=== PATIENT | female | born 1960 | race Caucasian/White ===

== ENCOUNTER 2023-06-20 06:10 | Day surgery (SDC) | payer OTHER, SELFPAY ==
[2023-06-20] VITALS (11 sets, daily range): BP systolic 107–132; BP diastolic 60–92; BMI 44.4
[2023-06-20] MEDS: NSS 330 ML IV (06:58)
[2023-06-20] MEDS: LOW STRENGTH ASPIRIN 324 MG PO (07:09)
[2023-06-20 08:20] LABS: Hematocrit 33.1 % (37.0-47.0); Mean Corp Hgb Conc. 33.2 g/dL (33.0-37.0); Mean Corpuscular Hgb 28.8 pg (27.0-31.0); Mean Corpuscular Volume 86.6 fL (81.0-99.0); Mean Platelet Volume 9.3 fL (7.4-10.4); Platelet Count 337 10^3/uL (130-400); Red Blood Cell Count 3.82 10^6/uL (4.20-5.40); Red Cell Dist. Width 13.2 % (11.5-14.5); White Blood Cell Count 9.9 10^3/uL (4.8-10.8)
[2023-06-20 08:42] LABS: NT-proBNP 263 pg/ml
--- NOTE | 2023-06-20 10:42 | ITS.CL.CATH ---
[facility] - Catheterization
Cardiac Catheterization
Procedure Report:
LEFT HEART CATHETERIZATION
Date of Procedure: June 20, 2023
Procedures performed:
1: Coronary angiography
2: Left ventricular hemodynamic assessment
Primary Care Physician: Dr. Modesta Coronado
Primary Full Stack Python Developer: Dr. Frederick Mckee
INDICATION: The patient is a 63-year-old woman with morbid obesity and severe aortic stenosis referred for coronary angiography in preparation for aortic valve intervention. Echo showed preserved EF with very high gradients. She recently developed
a URI and was started on Zithromax after visiting an urgent care center on Sunday. She has been afebrile.
ACCESS: The patient was prepped and draped in usual sterile fashion. A 6 [place] sheath was placed in the right radial artery using the Seldinger over the wire technique.
HEMODYNAMIC FINDINGS (mmHg):
LV(s/d,EDP): 199/19, 32
Ao(s/d,m): 135/83, 106
Mean aortic valve gradient on pullback: 48 mmHg
ANGIOGRAPHIC FINDINGS:
Single-plane Left Ventriculography in JJ Projection: Not done. Normal LV systolic function by recent echo.
Coronary Angiography:
Dominance: Right
Left Main: Normal
Left Anterior Descending: The left anterior descending artery is a large-caliber vessel that gives rise to several small caliber diagonal branches. These vessels are widely patent and appear angiographically normal with normal flow.
Left Circumflex: The circumflex artery is a medium caliber nondominant system that gives rise to 1 small first obtuse marginal branch and a very large second obtuse marginal branch that bifurcates into 3 major vessels. These vessels are normal with
normal flow.
Right Coronary: The right coronary artery is a medium to large caliber dominant vessel that is angiographically normal.
Fluoroscopy Time (min): 2.9
Radiation Dose (mGy): 284
DAP (Gy.cm2): 17
Closure device: None. A TR band was applied for hemostasis at the right wrist.
Complications: None.
ASSESSMENT:
1: Normal coronary arteries.
2: Severe aortic stenosis with elevated left ventricular filling pressures
CONCLUSIONS and RECOMMENDATIONS:
1: Proceed with CT surgical evaluation for SAVR versus TAVR. Given her relatively young age, despite her obesity, I think she is best served with a surgical aortic valve. Arrangements for formal CT surgical evaluation with Dr. Silva scheduled for
tomorrow.
2: Lasix 20 mg IV given at the end of the procedure given her elevated left ventricular filling pressures.
3: Close clinical follow-up.
Sylvester Angeles M.D.
Copy to: Dr. Modesta Coronado
--- NOTE | 2023-06-22 07:00 | W.PN.UPDATE ---
Update Note
Progress Note Update
Reviewed patient with the heart team in the SDM meeting. Patient saw Dr. Silva 06/20 in consult. A TAVR CT scan was ordered for a comprehensive evaluation of vessel size and heart anatomy for lifelong management planning. Dr. Silva will call patient to
discuss once CT scan has been completed. Patient is considering SAVR.
== END 2023-06-20 12:00 | disposition home or self-care (01) ==
LOC: CATH 06:10
PROVIDERS: Nurse Practitioner; ATTENDING PHYSICIAN Internal Medicine Interventional Cardiology; FAMILY PHYSICIAN Family Medicine; OTHER PHYSICIAN Internal Medicine Cardiovascular Disease
DX: I35.0 Nonrheumatic aortic (valve) stenosis (principal); E66.01 Morbid (severe) obesity due to excess calories
CPT/HCPCS: 83880; 85027; 93458; C1894; Q9967

== ENCOUNTER → 2023-06-28 09:32 | Outpatient (REF) | payer OTHER, SELFPAY | LOC: RAD 09:32 | PROVIDERS: ATTENDING PHYSICIAN Thoracic Surgery (Cardiothoracic Vascular Surgery) | DX: I35.0 Nonrheumatic aortic (valve) stenosis (principal) | CPT/HCPCS: 74174; 75572; Q9967 ==

== ENCOUNTER 2023-07-13 04:45 | Inpatient (IN) | payer OTHER, SELFPAY ==
[2023-07-02 09:01] VITALS: BMI 43.1
[2023-07-02 09:37] LABS: % Basophils 0.6 % (0-2); % Eosinophils 0.9 % (0-6); % Immature Granulocytes 0.3 % (0-0.5); % Lymphocytes 37.3 % (20.5-51.1); % Monocytes 8.4 % (1.7-9.3); % Neutrophils 52.5 % (42.2-75.2); Absolute Basophils 0.1 10^3/uL (0-0.2); Absolute Eosinophils 0.1 10^3/uL (0-0.7); Absolute Lymphocytes 3.4 10^3/uL (1.2-3.4); Absolute Monocytes 0.8 10^3/uL (0.1-0.6); Absolute Neutrophils 4.7 10^3/uL (1.4-6.5); Hematocrit 37.4 % (37.0-47.0); Hemoglobin 12.6 g/dL (12.0-16.0); Mean Corp Hgb Conc. 33.7 g/dL (33.0-37.0); Mean Corpuscular Hgb 29.1 pg (27.0-31.0); Mean Corpuscular Volume 86.4 fL (81.0-99.0); Mean Platelet Volume 8.7 fL (7.4-10.4); Nucleated Red Blood Cells % 0 %; Platelet Count 426 10^3/uL (130-400); Red Blood Cell Count 4.33 10^6/uL (4.20-5.40); Red Cell Dist. Width 13.3 % (11.5-14.5)
[2023-07-02 09:39] LABS: Urine Albumin Negative (Neg - Trace); Urine Bilirubin Negative (Negative); Urine Character Clear (Clear); Urine Color Yellow; Urine Glucose Negative (Negative); Urine Ketone Negative (Negative); Urine Leukocyte Negative (Negative); Urine Nitrite Negative (Negative); Urine Occult Blood Trace (Negative); Urine Specific Gravity 1.015 (<1.030); Urine Urobilinogen Negative (Neg - 1+)
[2023-07-02 09:43] LABS: INR 1.03; PT 13.3 Sec (11.4-14.6)
[2023-07-02 09:44] LABS: APTT 30.6 Sec (23.4-35.0)
[2023-07-02 10:04] LABS: ALT (SGPT) 16 U/L (0-35); AST (SGOT) 20 U/L (14-36); Albumin 4.2 g/dl (3.5-5.0); Alkaline Phosphatase 92 U/L (38-126); Blood Urea Nitrogen 19 mg/dl (7-17); Calcium 9.6 mg/dl (8.4-10.2); Carbon Dioxide 30 mmol/L (22-30); Chloride 96 mmol/L (98-107); Direct Bilirubin 0.3 mg/dl (0.0-0.4); Estimated Creatinine Clearance 86 ml/min; Glucose 93 mg/dl (70-99); Sodium 136 mmol/L (135-145); Total Bilirubin 0.6 mg/dl (0.2-1.3); Total Protein 7.3 g/dl (6.3-8.2); eGFR > 60.00
[2023-07-02 10:23] LABS: Urine Bacteria Few (Negative)
--- NOTE | 2023-07-02 10:48 | CM ---
Chart reviewed. Patient is independent of ADLS, lives with her and son in a 2 [address], 3 [place]UR[place], 0 DME. Reviewed preoperative and postoperative instructions and restrictions, along with showering guidelines. Gave patient 2 soaps along Cardiac
Surgery Book. Patient is agreeable to a home visit with the CT Transitional Care RN. Plan is for the patient to return home with CT Transitional RN. CM to follow
[2023-07-02 12:16] LABS: Glycohemoglobin (HgbA1c) 5.8 % (4.0-5.6)
[2023-07-13] VITALS (11 sets, daily range): BP systolic 83–122; BP diastolic 50–71; BMI 42.8
[2023-07-13] MEDS: LOPRESSOR 25 MG PO (06:03)
[2023-07-13] MEDS: BACTROBAN 2% OINTMENT 1 APPLIC NASAL ×2 (06:03→20:25)
[2023-07-13] MEDS: PROTONIX 40 MG PO (06:03)
[2023-07-13] MEDS: MAGNESIUM OXIDE 500 MG PO (06:04)
--- NOTE | 2023-07-13 06:13 | W.CVOR.SURPR ---
[facility] Surgeon Immed Pre Op
-
I have examined this patient prior to performance of the scheduled procedure.
The patient's condition is unchanged from the time of the dictated/written History and
Physical and the patient is able to undergo the scheduled procedure.
Sternotomy AVR with aortic root enlargement +/- SLICK Clip
CHADsVASC 2
[2023-07-13 08:33] LABS: ACT+ - POC 90 Seconds (82-134)
[2023-07-13 08:36] LABS: B.E. - POC -3.2 mmol/L; Glucose - POC 88 mg/dl (65-99); HCO3 - POC 22 mmol/L (21-29); Hematocrit - POC 34 % PCV (37-47); Hemodilution- POC Yes; Hemoglobin Calculated - POC 11.7; Ionized Calcium - POC 1.16 mmol/L (1.12-1.27); O2 Saturation %Calculated-POC 99.8 5 (92-96); PCO2 - POC 41 mmHg (35-45); PO2 - POC 242 mmHg (80-100); Sodium - POC 143 mmol/L (135-145); pH - POC 7.35 (7.35-7.45)
[2023-07-13 08:45] LABS: Urine Albumin Negative (Neg - Trace); Urine Bilirubin Negative (Negative); Urine Character Clear (Clear); Urine Color Yellow; Urine Glucose Negative (Negative); Urine Ketone Negative (Negative); Urine Leukocyte 1+ (Negative); Urine Nitrite Negative (Negative); Urine Occult Blood 1+ (Negative); Urine Urobilinogen Negative (Neg - 1+)
[2023-07-13 09:10] LABS: Urine Hyaline Cast 0-2 /LPF (0-2); Urine Squamous Cell 16-20 /LPF (Few)
[2023-07-13 09:11] LABS: Urine Bacteria Moderate (Negative); Urine Red Blood Cell 0-2 /HPF (0-2); Urine White Cell 30-40 /HPF (0-5)
[2023-07-13 09:37] LABS: ACT+ - POC 659 Seconds (82-134)
[2023-07-13 09:58] LABS: B.E. - POC 2.7 mmol/L; Glucose - POC 102 mg/dl (65-99); HCO3 - POC 26 mmol/L (21-29); Hematocrit - POC 26 % PCV (37-47); Hemodilution- POC Yes; Hemoglobin Calculated - POC 8.9; PCO2 - POC 33 mmHg (35-45); PO2 - POC 366 mmHg (80-100); Potassium - POC 4.8 mmol/L (3.6-5.0); Sodium - POC 138 mmol/L (135-145)
[2023-07-13 10:00] LABS: ACT+ - POC 595 Seconds (82-134)
[2023-07-13 10:29] LABS: B.E. - POC 1.1 mmol/L; Glucose - POC 136 mg/dl (65-99); HCO3 - POC 25 mmol/L (21-29); Hematocrit - POC 28 % PCV (37-47); Hemodilution- POC Yes; Hemoglobin Calculated - POC 9.6; Ionized Calcium - POC 1.04 mmol/L (1.12-1.27); O2 Saturation %Calculated-POC 99.9 5 (92-96); PCO2 - POC 37 mmHg (35-45); PO2 - POC 285 mmHg (80-100); Potassium - POC 4.7 mmol/L (3.6-5.0); Sodium - POC 141 mmol/L (135-145); pH - POC 7.44 (7.35-7.45)
[2023-07-13 10:32] LABS: ACT+ - POC 527 Seconds (82-134)
[2023-07-13 11:23] LABS: ACT+ - POC 107 Seconds (82-134)
[2023-07-13 11:24] LABS: B.E. - POC -5.6 mmol/L; Glucose - POC 80 mg/dl (65-99); HCO3 - POC 19 mmol/L (21-29); Hematocrit - POC 25 % PCV (37-47); Hemodilution- POC Yes; Hemoglobin Calculated - POC 8.6; Ionized Calcium - POC 1.26 mmol/L (1.12-1.27); O2 Saturation %Calculated-POC 99.9 5 (92-96); PCO2 - POC 33 mmHg (35-45); PO2 - POC 334 mmHg (80-100); Potassium - POC 3.2 mmol/L (3.6-5.0); Sodium - POC 144 mmol/L (135-145); pH - POC 7.37 (7.35-7.45)
--- NOTE | 2023-07-13 11:53 | CM ---
Chart reviewed. Patient is in the OR today. Patient is independent of ADLS, lives with her in a 2 STH, 3 [place]URA, 0 DME. Plan is for the patient to return home with CT Transitional RN. CM to follow
[2023-07-13 12:44] LABS: Glucose - Point of Care 157 mg/dl (70-99)
[2023-07-13 12:49] LABS: Hematocrit 27.1 % (37.0-47.0); Hemoglobin 9.3 g/dL (12.0-16.0); Platelet Count 218 10^3/uL (130-400)
[2023-07-13 12:50] LABS: B.E. -1.6 mmol/L; HCO3 22.9 mmol/L (21-28); Ionized Calcium 1.19 mMOL/L (1.15-1.33); PCO2 37 mmHg (32-35); PO2 197 mmHg (83-108); Potassium 4.4 mMOL/L (3.5-5.1); Sodium 140 mMOL/L (136-145)
[2023-07-13 12:54] LABS: Mixed Venous O2 Saturation 75.5 %
[2023-07-13 13:00] LABS: INR 1.36; PT 16.6 Sec (11.4-14.6)
--- NOTE | 2023-07-13 13:02 | W.PN.CT.SURG ---
CT Surgery Operative Note
-
CARDIAC SURGERY OPERATIVE REPORT
Preoperative Diagnosis: Aortic valve stenosis with bicuspid morphology, symptomatic
Postoperative Diagnosis: Same
Procedure(s) Performed:
1. Standard sternotomy with aortic and right atrial cannulation
2. Aortic valve replacement with a 25 mm bioprosthesis
3. Aortic root enlargement - Nicks-Velazco Method
4. Placement temporary ventricular pacing wires
5. Transesophageal echocardiography
6. Rigid sternal fixation with 3 plates and wound VAC placement
Date of Surgery: 07/13/2023
Comorbidities:
1. Severe aortic valve stenosis secondary to type I bicuspid valve with left right fusion, symptomatic
2. Morbidly obese with BMI of 42.8
3. Hypertension
4. Hyperlipidemia
5. ANEL
6. Fibro cystic breast disorder
7. Endometriosis
8. Asthma
9. GERD
Attending Surgeon: Braulio Silva MD, MS
Assistants: Patrick Ochoa PA-C (present and necessary to commercial escrow assistant, retraction, suction, exposure, suture management, and wound closure under my direction)
Anesthesiology: Yobani Ortiz MD and Meagan Sargent CRNA
Scrub and Circulating RNs: Radha Santoyo, RN, Loni Cano RN
Manager Economic: Mario Gee CCP
Anesthesia: GETA
EBL: per perfusion records
Products: None
CPB Time: 90 minutes
Aortic Cross Clamp Time: 75 minutes
Indication(s) for Procedures: This is a 60-year-old female severely valve stenosis and was profoundly symptomatic. She also recently had a respiratory tract infection. Due to her young age, we discussed the risk and benefits of operative
intervention versus TAVR. We opted to move forward with surgical aortic valve replacement as she met stage D symptomatology and class I indication.
Aortic Valve Description: Thickened leaflets, calcified most in the body of the leaflet, left right fusion with type I morphology
Findings: Left ventricular ejection fraction was 65% with no regional wall motion abnormalities there was mild left ventricular hypertrophy consistent with aortic valve stenosis. Following surgery EF was hyperdynamic at approximately 70% with no
new regional wall motion abnormalities. RV function was normal. Her root was enlarged with a mixed Velazco technique with the patient down the left none commissure onto the aorto mitral curtain. Using a large bovine pericardial patch this was sewn
to the base of the incision and along the aortotomy. The aortic valve was replaced with a total of 19 annular sutures with 4 of them being pledgeted outside the patch these were secured in place with core knots. Following implant of the valve,
there was trivial residual aortic valve insufficiency no significant paravalvular leak and normal prosthesis function. The mean gradient across her valve while she was hyperdynamic was 11 mmHg. She did not require any inotropic support. After
short period of junctional rhythm, she regained sinus rhythm. No products were given.
Specimen(s): Aortic Valve Leaflets.
Prosthesis:
1. 25mm SHEN Inspiris Resilia AVR, SN [id number]
2. Bovine Pericardial Patch, SN [id number]
3. 3 Box plates flat, 4 x 18mm screws and 8 x 16mm screws
Description of Procedure: The patient was taken to the operating room. Their identity and procedure to be performed were verified and they were positioned supine on the operating table. Induction via general anesthesia with endotracheal intubation
was performed and central venous access and arterial monitoring were inserted. A preoperative transesophageal echocardiogram was performed to assess cardiac function and valvular function. The patient was then prepped and draped from chin to feet in
a sterile fashion. A preoperative time-out was performed with all members of the team present. A midline chest incision was performed along with median sternotomy. The innominate vein was isolated. Full heparinization was given (a total of 50,000
units). We created a pericardial well. The aortic cannulation site was chosen where it was soft, pliable, and free of calcium. Cannulation was performed with an arterial cannula in the ascending aorta and a triple-stage venous cannula through the
right atrial appendage. The arterial cannula line had an appropriate bounce and correlating pressures with test dosing. Next, a root vent/antegrade cannula was inserted into the ascending aorta. The ACT was confirmed to be over 400 and retrograde
autologous priming was performed before commencing cardiopulmonary bypass. The pulmonary artery was away from the aorta to facilitate a clamp site and aortotomy. A left ventricular vent was placed at the right superior pulmonary vein and
secured. The aortic cross-clamp was placed after decreasing the flow on the bypass and mean arterial pressure. A total of 1.2L initial dose of antegrade Del-Nido cardioplegia solution was given and planned for re-dosing every 75 minutes as
necessary. There was rapid electro-mechanical arrest of the heart at 300 cc of cardioplegia. The left ventricle was observed for distention on echocardiogram and manual palpation. Cold slush was placed into a sponge and topically on the RV while we
systemically cooled to 34 degrees centigrade.
Carbon dioxide was used to flood the field. We manually identified the location of the right coronary take off. An aortotomy was made approximately 2cm above the sinotubular junction. The location of both left and right coronary vessels were
visualized in the root.The leaflets were excised and sent for pathological assessment. The annulus was debrided of any calcium being mindful of the annulus and membranous septum. The root and left ventricular outflow tract were thoroughly irrigated
to remove any debris. I then tried to size the annulus which could not accommodate a 23 mm valve comfortably. The aortotomy incision was then extended down to sinus towards the left right commissure and onto the aorto mitral curtain. A bovine
pericardial patch was then brought to the field and fashioned accordingly into a teardrop shape. Using 4-0 Prolene this patch was sewn to the apex of the incision and run all the way up with 4-0 Prolene in a single layer. A total of 15
Non-pledgeted and 4 pledgeted (outside the patch ) 2-0 ethibond inverted annular sutures were placed [id number] circumferentially. These were brought through the sewing cuff of the prosthetic valve which as then parachuted into place. The left
and right coronary ostia were visualized and were unobstructed by the valve. A Cor-Knot device was used to secure the annular sutures. The valve was inspected and was well seated. The aortotomy was approximated with 4-0 prolene in two layers.
De-airing maneuvers were performed and temporary bipolar ventricular pacing wires were placed on the base of the right ventricle. The patient was placed in a Trendelenburg position and flows on bypass were lowered. The aortic cross clamp was removed
and flows were slowly brought back up. The aortotomy appeared hemostatic. A single repair stitch was placed towards the apex of the incision on the left side. Transesophageal echocardiography revealed no significant paravalvular leak and
appropriate prosthetic function. Once de-airing was satisfactory, the left ventricular and root vents were removed. After verifying acceptable parameters, we initiated weaning from cardiopulmonary bypass. Once we were off cardiopulmonary bypass, the
venous cannula was clamped and removed. A test dose of protamine was administered and the patient was monitored for any adverse reaction before resuming protamine. Once half of the protamine dose was delivered, pump suckers were turned off and the
systolic blood pressure was lowered for aortic decannulation. The aortic cannula was removed and pursestrings were tied down. All cannulation sites were oversewn with a 4-0 prolene. The aortotomy suture line was inspected and hemostasis was
confirmed. Mediastinal hemostasis was obtained. Two 24Fr Reynaldo drains were placed within the pericardium and a single #19 Korean Reynaldo drain to the right estelita thorax. The sternum was approximated with 4 #7 single and 3 #8 double stainless steel
wires. Three box plates were placed (one at the manubrium secured with 4 x 18mm screws, and 2 at the body of the sternum, secured with 8 x 16mm screws), Fascia was approximated with #1 vicryl suture. The subcutaneous, dermis and epidermis were
closed in layers in a running fashion. A MARTI drain was placed into the subcutaneous tissue and the skin wound was cleansed and dressed with a skin vac (VIRIDIANA).
All instrument, sponge, and needle counts were confirmed to be correct x 2 at the end of the operation. The patient was transferred to the cardiac intensive care unit in critical but stable condition.
I, Dr. Braulio Silva, was present, scrubbed for, and performed all critical elements of this procedure.
Braulio Silva MD, MS
Cardiothoracic Surgeon
[facility]
This operative dictation was created using the [employer]ad[employer] system. Please excuse any grammatical, typographical, or 'sound alike' errors
--- NOTE | 2023-07-13 13:05 | PTCARENOTE ---
Received pt from [facility] at 1230; pt intubated and sedated; NSR on monitor and VSS; Epicardial V wires connected to box and turned off; [place] floated to 40, Left A-line and PIV x 2; all lines leveled and zeroed; Levo, Insulin, and Precedex
infusing see flow sheet for details; Lungs diminished throughout; ET Tube size 8 lip @ 21; vent settings SIMV 40%/550/5/16; CT x3 to -20 wall suction no air leak and no crepitus noted; hypoactive bowel sounds; [place] catheter draining clear yellow
urine; palpable pulses throughout; no edema noted; all surgical sites C/D/I; VIRIDIANA drain intact and MARTI drain to mediastinal chest intact; see nursing documentation for further details.
CI 1.75
CO 3.66
SVR 1289
[2023-07-13 13:19] LABS: Blood Urea Nitrogen 15 mg/dl (7-17); Estimated Creatinine Clearance 114 ml/min; Glucose 145 mg/dl (70-99); Magnesium 2.5 mg/dl (1.6-2.3)
--- NOTE | 2023-07-13 13:21 | PTCARENOTE ---
CRX performed and CVNP at bedside; ET tube new placement 20 @ lip.
--- NOTE | 2023-07-13 13:22 | W.PN.UPDATE ---
Update Note
Progress Note Update
63 year old female was electively admitted for AVR/root enlargement with Dr. Silva on 07/13/23
IV fluids: 2000
U.O.:� 800
Blood:� none
Wires:�
Inotropes:� none
Pressors:� Levo @ 2
Sedatives:� Precedex @ 0.5
�
NEURO: sedated on Precedex, pupils +2mm B/L
RESP: #8OT @23cm> 550/60%/14/5. Lungs clear B/L. 2 mediastinal (10cc on arrival) and R pleural (5cc on arrival) chest tubes to -20cm suction. Sanguineous drainage
CV: RRR +S1, S2, no S3, no�rub, no murmur. Vacuum dressing to median sternotomy. RIJ w/[place] locked @ 43cm. PA 38/19; CVP 13; C.O 3.66/CI 1.75. Mediastinal MARTI intact with sanguinous drainage. Surgical binder intact over thorax
ABD: obese, round, soft, no BS
EXT: no edema, +2/4 DP pulses B/L, no femoral bruit, left brachial A-line intact
: [place] with clear yellow urine
�
A/P: POD #0 s/p Aortic valve replacement #25 mm bioprosthesis with root enlargement (Nicks-Velazco Method). Rigid sternal fixation with 3 plates and wound VAC placement
JORDAN: EF�70-75%. 80 mean gradient 11 mmHg. Trivial AI.
- wean and extubate
- will need instruction regarding antibiotic prophylaxis for dental and invasive procedures
- ASA monotherapy as anticoagulation (AC) unless other indication for ACD arises
�
# acute surgical blood loss anemia-expected
- initial Hb 9.3, will initiate ferric gluconate
- trend CBC
# anxiety/depression
-resume sertraline 50mg daily when tolerating solids
�
# Pre-diabetes (A1C 5.8)/morbid obesity (BMI 42.8)
- insulin infusion x 24h
- should follow carb controlled diet as outpatient
# Migraine cephalgia
- resume propanolol 20mg BID and sumatriptan 50mg po q2h prn when tolerating solids
�
--- NOTE | 2023-07-13 13:43 | CON.CAR ---
Addendum entered and electronically signed by Anthony Kim MD 07/13/23 14:36:
patient seen and examined
Agree with PA-C note and assessment
agree with PA-C plan
exam:
intubated and sedated
sternum cdi
sternum plated
subq drain plus mediastinal drains
PA catheter in place right ij
cor regular
lungs diminished
no ext edema
bmi noted
Primary Separations Scientist: Dr. Mckee of [facility]
Assessment:
Severe symptomatic with bicuspid morphology s/p bioprosthetic AVR, aortic root enlargement, rigid sternal fixation 07/13/23
Morbid obesity
Venous insufficiency
History of migraines
Asthma/reactive airway disease
Anemia
Endometriosis status post hysterectomy
GERD
Anxiety/depression
ECHO 06/04/2023 at [facility]: EF 55 to 60%, mild LVH, severe , trace AI
Plan:
-Status post bioprosthetic AVR with rigid sternal fixation 07/13/2023
-Patient intubated, sedated
-Not presently requiring pressor support. Cardiac index 1.75. On insulin at 3.5
-EKG sinus rhythm with NSSTS
-Noted to be wheezing on examination. Reportedly required albuterol in the OR
-Hemoglobin 9.3, follow. Platelets stable at 218
-Continue postoperative care
-Outpatient follow-up with [facility]
-Discussed with nursing
Original Note:
Consultation
Consultation Request
Date/Time Consultation Performed: 07/13/23
Requesting Provider: Dr. Silva
Performing Provider: Albina Armenta PA-C for Dr. Kim
Reason for Consultation: post AVR
Medical History
-
Chief Complaint: post AVR
History of Present Illness:
Patient is a 63 yo F with past medical history of morbid obesity, venous insufficiency, history of migraines, asthma, anemia, endometriosis s/p GRISELDA, depression/anxiety who was found to have severe symptomatic bicupsid aortic valve stenosis with
complaints of shortness of breath. EF was preserved by echo. She underwent cardiac catheterization which was negative for obstructive coronary disease. Status post AVR on 07/13/2023. Cardiology consulted for assistance with postoperative
management. Primary manager academic is Dr. Mckee of [facility].
PMH:
severe
Morbid obesity
Venous insufficiency
History of migraines
Asthma/reactive airway disease
Anemia
Endometriosis status post hysterectomy
GERD
Anxiety/depression
Past Medical History
Past Medical History: Other (in HPI)
Social History
Tobacco: Non-Smoker
Alcohol: Occasional
Personal:
Living: With Family
Family History
Family History: Unable to Obtain
Allergies / Home Medications
Allergy/AdvReac Type Severity Reaction Status Date / Time
topiramate Allergy numbness & Verified 06/27/23 13:37
tingling
in
extremities
�Medication �Instructions �Recorded �Confirmed �Type
albuterol sulfate 90 mcg/actuation 2 puff inhalation Q6H PRN wheezing 06/20/23 06/27/23 History
aerosol inhaler
furosemide 20 mg tablet (Lasix) 20 mg PO DAILY #90 tabs 06/20/23 06/27/23 Rx
propranolol 20 mg tablet 20 mg PO BID Heart 06/20/23 06/27/23 History
Disease/Condition
sertraline 50 mg tablet 50 mg PO DAILY Mental 06/20/23 06/27/23 History
Health/Anxiety
sumatriptan succinate 50 mg tablet 50 mg PO Q2H PRN migraine 06/20/23 06/27/23 History
Review of Systems
-
Unable to obtain full review of systems at this time due to: Patient Intubation
Physical Exam
Vital Signs
Temp Pulse Resp BP Pulse Ox
97.3 F 76 14 124/86 98
07/13/23 13:02 07/13/23 13:00 07/13/23 13:02 07/13/23 06:03 07/13/23 13:29
Lab Results
07/13/23 12:43
Physical Exam
General: No Apparent Distress, Intubated and Other (obese)
HEENT: Normocephalic and Moist Mucous Membranes
Respiratory: Wheezes (expiratory) and Other (on vent)
Cardiac: S1/S2 and Regular Rhythm; Negative Murmur
Musculoskeletal: No Clubbing, No Cyanosis and Edema (trace of B/L LE)
Skin: Warm, Dry and Other (Sternotomy dressing c/d/i)
Neuro: Sedated
Impression / Plan
-
Primary Separations Scientist: Dr. Mckee of [facility]
Assessment:
Severe symptomatic with bicuspid morphology s/p bioprosthetic AVR, aortic root enlargement, rigid sternal fixation 07/13/23
Morbid obesity
Venous insufficiency
History of migraines
Asthma/reactive airway disease
Anemia
Endometriosis status post hysterectomy
GERD
Anxiety/depression
ECHO 06/04/2023 at [facility]: EF 55 to 60%, mild LVH, severe , trace AI
Plan:
-Status post bioprosthetic AVR with rigid sternal fixation 07/13/2023
-Patient intubated, sedated
-Not presently requiring pressor support. Cardiac index 1.75. On insulin at 3.5
-EKG sinus rhythm with NSSTS
-Noted to be wheezing on examination. Reportedly required albuterol in the OR
-Hemoglobin 9.3, follow. Platelets stable at 218
-Continue postoperative care
-Outpatient follow-up with [facility]
-Discussed with nursing
Data Reviewed
-
EKG: Tracing Personally Visualized and interpreted
Medical Tests (Nuc Med, Echo etc): Report Reviewed by me
Labs: Labs Reviewed by me
Old Records: Reviewed
[2023-07-13 13:58] LABS: Glucose - Point of Care 165 mg/dl (70-99)
[2023-07-13] MEDS: NEURONTIN PO ×2 (14:04→15:33)
[2023-07-13] MEDS: ANCEF 10 IV ×2 (14:04)
[2023-07-13] MEDS: TYLENOL PO ×2 (14:10→14:19)
[2023-07-13] MEDS: ZOLOFT PO (14:10)
[2023-07-13] MEDS: NSS 500 IV (14:11)
--- NOTE | 2023-07-13 14:19 | CON.INTV ---
Consultation
Consultation Request
Date/Time Consultation Requested: 07/13/23
Date/Time Consultation Performed: 07/13/23
Reason for Consultation: Critical care
Medical History
-
History of Present Illness:
History obtained from the chart as patient is currently intubated, sedated. . 63-year-old female with history of aortic stenosis with progressive pulmonary symptoms, echocardiogram to revealed severe gradients of 83/62. She had a normal EF,
catheterization unremarkable. Patient underwent sternotomy with bioprosthetic AVR, aortic root enlargement, rigid sternal fixation with wound VAC placement. Patient remains critically ill but stable, required norepinephrine at time of arrival to
[facility], has since been weaned off. We are asked to help from critical care standpoint
.
PMH: Morbidly obese, hypertension, hyperlipidemia, endometriosis, asthma, GERD, sleep apnea
Past Medical History
Past Medical History: None (See above)
Past Surgical History: None (See above)
Social History
Tobacco: Non-smoker
Alcohol: None
Drug: None
Personal:
Living: With Family
Employment: Employed (Sales/administration)
Family History
Family History: Other (Father from lung cancer/colon cancer age 69. Mother from lung cancer/brain cancer age 72. 4 siblings healthy, 2 children healthy)
Allergies / Home Medications
Allergies
Allergy/AdvReac Type Severity Reaction Status Date / Time
topiramate Allergy numbness & Verified 06/27/23 13:37
tingling
in
extremities
Home Medications
�Medication �Instructions �Recorded �Confirmed �Last Taken �Type
albuterol sulfate 90 mcg/actuation 2 puff inhalation Q6H PRN wheezing 06/20/23 06/27/23 Unknown History
aerosol inhaler
furosemide 20 mg tablet (Lasix) 20 mg PO DAILY #90 tabs 06/20/23 06/27/23 Unknown Rx
propranolol 20 mg tablet 20 mg PO BID Heart 06/20/23 06/27/23 06/20/23 04:45 History
Disease/Condition
sertraline 50 mg tablet 50 mg PO DAILY Mental 06/20/23 06/27/23 06/19/23 20:00 History
Health/Anxiety
sumatriptan succinate 50 mg tablet 50 mg PO Q2H PRN migraine 06/20/23 06/27/23 Unknown History
Review of Systems
-
Unable to Obtain full review of systems at this time due to: Patient Intubation
Vitals / Labs / Diagnostic Testing
Vital Signs
Temp Pulse Resp BP Pulse Ox
97.4 F 70 6 124/86 99
07/13/23 14:00 07/13/23 14:10 07/13/23 14:10 07/13/23 06:03 07/13/23 14:10
Lab Data
07/13/23 12:43
Laboratory Results
07/13/23
12:43
PT 16.6 H
INR 1.36
APTT 35.0
pH 7.40
pCO2 37 H
pO2 197 H
HCO3 22.9
O2 Delivery Level
Diagnostic Testing:
Physical Exam
-
HEENT: Normocephalic and Other (IJ, A-line, chest tube)
Cardiovascular: S1/S2, Regular Rhythm, Murmur (n), Rub (n) and Other (Sternal incision with dressing)
Respiratory: Wheeze (n), Rales (n), Rhonchi (n) and Non-Labored Respirations
GI: Soft and Non Distended (Morbidly obese)
Neurology: Other (Sedated)
Skin: Good Color
General: Comfortable
Assessment
-
63-year-old female with progressive shortness of breath, severe aortic stenosis with abnormal gradients, unremarkable catheterization, status post bioprosthetic AVR, aortic root enlargement, rigid fixation of sternum 07/13/23
S/p bioprosthetic AVR, 07/13/23
Rigid sternal fixation
Aortic root enlargement
Severe aortic stenosis with progressive symptoms
Normal coronaries, normal EF
Morbid obesity
Postoperative anemia
Conditions present prior to admission
History of asthma
History of anemia
History of sleep apnea
Endometriosis with hysterectomy
GERD
Anxiety/depression
Family history of lung cancer
Plan/recommendations
Patient is critically ill but remained stable. Adequate airway pressures on volume-cycled ventilation, FiO2 being weaned
Postoperative chest x-ray with decreased lung volumes, morbid obesity, ET tube appropriate. Chest tubes in place
Postoperative EKG normal sinus rhythm
Cardiac CT 06/28/2023 without parenchymal abnormality
Postoperative JORDAN with hyperdynamic LV, EF 75%, well-seated valve, normal RV size and function
Moving forward
Continue with management per CT surgery
Follow hemoglobin, transfuse as needed
Chest tube output minimal
Suspect extubation later today
Morbid obesity, suspected sleep apnea
Head of bed elevated if able
Empiric BiPAP if needed, 15/8 with supplemental oxygen as needed
Family history of lung cancer noted. Patient non-smoker. Recent cardiac CT without any parenchymal abnormalities
DVT prophylaxis, GI prophylaxis per CT surgery protocol
Reviewed with critical care nursing
Will follow
TCCT 31 min
[2023-07-13 15:06] LABS: Glucose - Point of Care 124 mg/dl (70-99)
--- NOTE | 2023-07-13 15:17 | PTCARENOTE ---
Respiratory at bedside; pt placed on CPAP.
[2023-07-13] MEDS: PACERONE PO ×2 (15:33→22:33)
[2023-07-13 15:49] LABS: Glucose - Point of Care 107 mg/dl (70-99)
[2023-07-13 15:54] LABS: B.E. -3.3 mmol/L; HCO3 22.7 mmol/L (21-28); Ionized Calcium 1.21 mMOL/L (1.15-1.33); O2 Saturation % 99.8 % (94-98); PCO2 44 mmHg (32-35); PO2 162 mmHg (83-108); Potassium 3.9 mMOL/L (3.5-5.1); Sodium 141 mMOL/L (136-145); pH 7.32 (7.35-7.45)
[2023-07-13] MEDS: KCL 50 IV (15:58)
--- NOTE | 2023-07-13 16:07 | PTCARENOTE ---
ABGs reviewed with [facility] [employer] respiratory at bedside and pt extubated; 6L NC 98%.
--- NOTE | 2023-07-13 16:10 | RESPNOTE ---
Extubated to 6 liter NC without incident-98% IS done 250ml
[2023-07-13] MEDS: OFIRMEV 100 IV (16:20)
[2023-07-13 16:32] LABS: Hematocrit 29.6 % (37.0-47.0); Hemoglobin 10.1 g/dL (12.0-16.0); Platelet Count 265 10^3/uL (130-400)
[2023-07-13 17:06] LABS: Glucose - Point of Care 119 mg/dl (70-99)
[2023-07-13] MEDS: ZOFRAN 4 MG IV (17:34)
[2023-07-13] MEDS: TORADOL 15 MG IV (17:56)
[2023-07-13] MEDS: ANCEF 5 IV (17:56)
[2023-07-13] MEDS: LOW STRENGTH ASPIRIN 81 MG PO (17:57)
[2023-07-13 19:03] LABS: Glucose - Point of Care 112 mg/dl (70-99)
[2023-07-13] MEDS: SENOKOT-S 1 TABLET PO (20:24)
[2023-07-13] MEDS: SODIUM BICARBONATE 50 MEQ IV (20:24)
[2023-07-13] MEDS: ALBUMIN 5% 250 IV (20:45)
[2023-07-13 20:52] LABS: Glucose - Point of Care 112 mg/dl (70-99)
--- NOTE | 2023-07-13 21:00 | PTCARENOTE ---
Patient received resting in bed, dozing intermittently. Family at bedside. Patient A+A+Ox3. No neurological deficits noted. No c/o headache, dizziness or lightheadedness. O2 at 5L via NC. SaO2 98%. Three chest tubes - Mediastinal x2 and Right
Pleural - Intact and patent - 5-15 ml red drainage - No air leak, tidaling or crepitus noted. Dressing intact. Raúl-Mane drain - mid-chest region - Intact - 5 ml serosanguineous drainage - Empty and compress per protocol. Sinus Rhythm. Heart
rate 70-80's. No c/o chest pain, pressure or discomfort. V-Wires connected to box - Off. VIRIDIANA dressing to sternum with VIRIDIANA drain intact. Abdomen soft, round, obese. Hypoactive bowel sounds. No BM. No c/o nausea. No vomiting. [place] catheter
intact - Temperature sensing - Light dwayne, yellow urine - Hourly output as documented. Right I.J. Cordis with [place] Jenn catheter. Left brachial A-Line. A-Line, PAP, CVP to pressure bag/saline flush - Flush without difficulty - Zeroed and
calibrated - Waveforms within normal limits. Positive, palpable pulses. Patient with no c/o back or flank pain. Levophed off and on - 1-2 mcq/min. C.O. 4.06 C.I. 1.94. Sodium Bicarbonate 50 mEq IV administered per PA order (Gary Cuellar
PA-C). 5% Albumin 250 ml administered. Assessment as documented.
--- NOTE | 2023-07-13 22:30 | PTCARENOTE ---
Patient resting in bed without difficulty. C.O. 4.26 C.I. 2.04. Levophed gtt at 1 mcq/min (3.8 ml/hr). No further changes from previous assessment.
[2023-07-13] MEDS: NEURONTIN 100 MG PO (22:33)
[2023-07-13] MEDS: TYLENOL 1000 MG PO (22:33)
[2023-07-13 23:10] LABS: Glucose - Point of Care 106 mg/dl (70-99)
[2023-07-14] VITALS (19 sets, daily range): BP systolic 87–120; BP diastolic 40–66; BMI 44.4
[2023-07-14] MEDS: TORADOL 15 MG IV (00:36)
--- NOTE | 2023-07-14 00:45 | PTCARENOTE ---
C.O. 4.54 C.I. 2.17 CVP 11 PAP / (23) SVR 1110. Levophed gtt off. Patient resting in bed without difficulty. Assessment/Interventions as documented.
[2023-07-14 01:12] LABS: Glucose - Point of Care 95 mg/dl (70-99)
[2023-07-14] MEDS: ANCEF 5 IV ×2 (02:25→09:23)
--- NOTE | 2023-07-14 02:30 | PTCARENOTE ---
Patient sleeping without difficulty. Easily awakens during periods of care. Patient A+A+Ox3. No neurological deficits noted. C.O. 4.65 C.I. 2.23. Assessment/Interventions as documented.
[2023-07-14 03:23] LABS: Glucose - Point of Care 108 mg/dl (70-99)
--- NOTE | 2023-07-14 03:43 | W.PN.CT ---
Today's Communication / Plan
-
Plan:
-No major issues overnight. Hemodynamically and neurologically intact
-Successfully extubated on 06/12/23 @ 1605
-Weaned off Levophed gtt overnight, remains on insulin gtt per protocol
-Last CI 2.26, U/O since OR 1185 mL
-BP a bit soft, Lopressor placed on hold
-Cont. current meds (ASA, Amiodarone, Lopressor-held last night while on Levophed, Lipitor; will add Plavix given NSTEMI)
-Monitor chest tube drainage: 2meds 65/150, R pleural 65/150
-Monitor chest wound-vac/VIRIDIANA dressing
-D/C'd swan and a-line this AM @ 0500
-D/C insulin gtt per protocol, tele phase when off
-D/C lofton catheter
-Maintain cordis
-Maintain temporary PW (will pull before d/c home)
-Encourage use of IS
-Wean off of O2 as tolerated
-OOB into chair/Ambulate
Assessment / Plan
-
Assessment:
-S/p Aortic valve replacement with a 25 mm bioprosthesis/Aortic root enlargement - Norma-Velazco Method/Rigid sternal fixation with 3 plates and wound VAC placement, by Dr. Silva, 07/13/23, pod#1
-Severe aortic valve stenosis secondary to type I bicuspid valve with left right fusion, symptomatic
-Morbidly obese with BMI of 42.8
-Hypertension
-Hyperlipidemia
-ANEL
-Prediabetes (A1C 5.8)
-Fibro cystic breast disorder
-Endometriosis
-Venous insufficiencies
-Asthma/reactive airway
-GERD
-Anxiety disorder
-S/p GRISELDA
-S/P Hx x 2
-S/P Cholecystectomy
-Acute postop blood loss on chronic Anemia (stable without transfusion)
-Acute postop atelectasis
-Acute postop hypovolemia with subsequent hypervolemia
Discussed patient care with: Cardiology, Nursing, Respiratory Therapy, Pharmacy and Care Team
Subjective
Procedure
Aortic valve replacement with a 25 mm bioprosthesis/Aortic root enlargement - Mikes-Velazco Method/Rigid sternal fixation with 3 plates and wound VAC placement, by Dr. Silva, 07/13/23
-
Date of Service: July 14, 2023
Pt c/o incisional pain, otherwise feels well
Objective Data
-
PT 16.6 Sec (11.4-14.6) H 07/13/23 12:43
INR 1.36 07/13/23 12:43
APTT 35.0 Sec (23.4-35.0) 07/13/23 12:43
Vital Signs
Vital Signs
Temp Pulse Resp BP Pulse Ox
98.1 F 79 22 97/62 97
07/14/23 03:00 07/14/23 03:20 07/14/23 03:20 07/14/23 03:00 07/14/23 03:20
CT Intake/Output/Weight
07/13/23 07/13/23 07/14/23
06:59 18:59 06:59
Intake Total 501.8 / 968.8 467.0 / 968.8
Output Total 785 / 1400 615 / 1400
Balance -283.2 / -431.2 -148.0 / -431.2
SaO2: 97 (2L)
Physical Exam
-
General: Awake and AOx3
Cardiovascular: Regular rate & rhythm, No Murmurs and No Gallop
Respiratory: Decreased Breath Sounds
Sternum: Stable
Incision: Clean, Dry, Intact and Dressing Intact
Extremities: Other (+trace edema)
Data Reviewed
-
Lab Results: Results Reviewed
Medications: Active Meds Reviewed
Chest X-Ray: Report Reviewed and Image Reviewed
ECG: Report Reviewed and Image Reviewed
[2023-07-14 03:59] LABS: Hematocrit 25.5 % (37.0-47.0); Hemoglobin 8.5 g/dL (12.0-16.0); Mean Corp Hgb Conc. 33.3 g/dL (33.0-37.0); Mean Corpuscular Hgb 29.5 pg (27.0-31.0); Mean Corpuscular Volume 88.5 fL (81.0-99.0); Mean Platelet Volume 9.4 fL (7.4-10.4); Platelet Count 180 10^3/uL (130-400); Red Blood Cell Count 2.88 10^6/uL (4.20-5.40); Red Cell Dist. Width 13.6 % (11.5-14.5); White Blood Cell Count 13.6 10^3/uL (4.8-10.8)
[2023-07-14 04:30] LABS: Blood Urea Nitrogen 16 mg/dl (7-17); Calcium 8.6 mg/dl (8.4-10.2); Carbon Dioxide 24 mmol/L (22-30); Chloride 112 mmol/L (98-107); Estimated Creatinine Clearance 114 ml/min; Glucose 111 mg/dl (70-99); Magnesium 2.2 mg/dl (1.6-2.3); Potassium 4.6 mmol/L (3.5-5.1); Sodium 138 mmol/L (135-145); eGFR > 60.00
[2023-07-14 05:11] LABS: Glucose - Point of Care 97 mg/dl (70-99)
--- NOTE | 2023-07-14 06:15 | PTCARENOTE ---
Patient A+A+Ox3. No neurological deficits noted. O2 at 2L via NC. SaO2 96%. Sinus Rhythm. Heart rate 70-80's. No c/o chest pain, pressure or discomfort. AM lab work collected and sent. EKG completed. Portable CXR completed. Patient
De-Lined without difficulty. OOB to chair. Standing scale weight 109.9 kg. Patient with no c/o headache, dizziness or lightheadedness. Assessment/Interventions as documented.
[2023-07-14] MEDS: TYLENOL 1000 MG PO ×3 (06:20→22:56)
[2023-07-14] MEDS: TORADOL IV (06:20)
[2023-07-14 07:11] LABS: Glucose - Point of Care 123 mg/dl (70-99)
--- NOTE | 2023-07-14 07:14 | W.PN.INTV ---
Today's Communication / Plan
Recommendations
Incentive spirometry, pain control
Out of bed to chair
Follow atelectasis on chest x-ray
Suspected sleep apnea, patient had PSG per primary which was normal
Recommend weight loss, head of bed elevated
Transferred to telemetry. We will sign off. Please call with questions
Assessment
-
63-year-old female with progressive shortness of breath, severe aortic stenosis with abnormal gradients, unremarkable catheterization, status post bioprosthetic AVR, aortic root enlargement, rigid fixation of sternum 07/13/23
S/p bioprosthetic AVR, 07/13/23
Rigid sternal fixation
Aortic root enlargement
Severe aortic stenosis with progressive symptoms
Normal coronaries, normal EF
Morbid obesity
Postoperative anemia
Conditions present prior to admission
History of asthma
History of anemia
History of sleep apnea
Endometriosis with hysterectomy
GERD
Anxiety/depression
Family history of lung cancer
Plan/recommendations
At this time, patient appears to be comfortable, on room air
Chest exam with decreased breath sounds, mild splinting
Chest x-ray today without any acute findings. Mild subsegmental atelectasis right midlung zone
Postoperative JORDAN with hyperdynamic LV, EF 75%, well-seated valve, normal RV size and function
Moving forward
Continue with management per CT surgery
Follow hemoglobin, transfuse as needed
Chest tube output minimal
Morbid obesity, suspected sleep apnea
Patient states she had a PSG in the past, this was normal
Head of bed elevated if able
Family history of lung cancer noted. Patient non-smoker. Recent cardiac CT without any parenchymal abnormalities
DVT prophylaxis, GI prophylaxis per CT surgery protocol
Reviewed with critical care nursing
Patient transferred to telemetry. We will sign off. Please call with questions
Subjective Dataa
Subjective Data
Date of Service:
Date of Service: July 14, 2023
Subjective:
Patient sitting in chair, feeling well, fatigued. Mild splinting on exam noted. Denies significant cough, hemoptysis, nausea. Presently on room air
Objective Data
Data Reviewed
Vital Signs / I&O / Oxygen:
Vital Signs
Temp Pulse Resp BP Pulse Ox
98.2 F 78 14 92/56 97
07/14/23 05:00 07/14/23 07:10 07/14/23 05:45 07/14/23 05:00 07/14/23 06:09
Intake and Output
07/13/23 07/14/23 07/15/23
06:59 06:59 06:59
Intake Total 1782.4 / 1782.4
Output Total 1540 / 1540
Balance 242.4 / 242.4
SaO2 [CPAP] 98
SaO2 [SIMV] 98
SaO2 97
Nasal Cannula flow liters per 2
minute
Physical Exam
General: Comfortable and Other (Right IJ, chest tube)
HEENT: Normocephalic and Anicteric
Cardiovascular: S1-S2, Regular Rhythm, Murmur (n), Rub (n), Peripheral Edema (n) and Other (Sequentials in place)
Respiratory: Wheeze (n), Crackles (n), Rhonchi (n) and Other (Decreased breath sounds, mild splinting)
GI: Soft, Non Distended (Obese) and Non Tender
Neurology: Awake, Alert and No Motor Deficits (Moves all extremities, able to sit up without assistance)
Skin: Good Color, Cyanosis (n) and Jaundice
Labs/Micro/Reports
Lab Data
07/14/23 03:40
07/14/23 03:40
Laboratory Results
07/13/23 07/13/23
12:43 15:46
PT 16.6 H
INR 1.36
APTT 35.0
pH 7.40 7.32 L
pCO2 37 H 44 H
pO2 197 H 162 H
HCO3 22.9 22.7
O2 Delivery Level
--- NOTE | 2023-07-14 08:45 | PTCARENOTE ---
assumed care of pt from previous shift RN. sinus rhythm on tele, + peripheral pulses, +1 edema noted to bilateral lower extremities. Lungs diminished, pox 98% on 2L NC. +bs, tolerating PO intake, lofton catheter draining dwayne. Right IJ cordis w KVO
and insulin infusing, PIV flushes easily. CT x3 w minimal amount of red drainage. MSI w VIRIDIANA dressing intact, MARTI drain compressed without drainage. Plan of care reviewed w the pt and questions encouraged.
[2023-07-14] MEDS: MAGNESIUM OXIDE 500 MG PO ×2 (09:22→20:36)
[2023-07-14] MEDS: LOW STRENGTH ASPIRIN 81 MG PO (09:22)
[2023-07-14] MEDS: PROTONIX 40 MG PO (09:22)
[2023-07-14] MEDS: BACTROBAN 2% OINTMENT 1 APPLIC NASAL ×2 (09:22→20:35)
[2023-07-14] MEDS: ZOLOFT 50 MG PO (09:22)
[2023-07-14] MEDS: PACERONE 200 MG PO ×3 (09:22→22:56)
[2023-07-14] MEDS: NEURONTIN 100 MG PO ×3 (09:22→22:56)
[2023-07-14] MEDS: SENOKOT-S 1 TABLET PO ×2 (09:22→20:36)
[2023-07-14] MEDS: LIDOCAINE 4% PATCH 1 PATCH TOPICAL (09:23)
[2023-07-14 09:27] LABS: Glucose - Point of Care 94 mg/dl (70-99)
[2023-07-14] MEDS: CALCIUM GLUCONATE 100 IV (09:32)
[2023-07-14] MEDS: VITAMIN C 1000 MG PO (11:20)
[2023-07-14] MEDS: NSS IV (11:20)
[2023-07-14] MEDS: SODIUM BICARBONATE 50 MEQ IV (11:20)
--- NOTE | 2023-07-14 11:54 | PTCARENOTE ---
MARTI drain, pleural CT and lofton discontinued as ordered. CXR completed.
[2023-07-14] MEDS: FERRLECIT 110 MG IV (15:48)
--- NOTE | 2023-07-14 15:59 | PTCARENOTE ---
pt assisted from chair to bed, tolerated well. VSS, sinus rhythm maintained on tele.
--- NOTE | 2023-07-14 16:29 | W.PN.ANS.POP ---
Anesthesia Post Operative
- Anesthesia Post Op Note
Vital Signs Stable-See Nursing Note: Yes
Airway Patent: Yes
Adequate Pain Control: Yes
Change in Mental Status: No
Current Postoperative Nausea & Vomiting: No
Anesthesia Complications: No
General Anesthetic Recall: No
Unplanned Admission: No
Post Op Hydration Adequate: Yes
[2023-07-14 18:17] LABS: Glucose - Point of Care 137 mg/dl (70-99)
[2023-07-14] MEDS: LOPRESSOR PO (20:36)
--- NOTE | 2023-07-14 21:00 | PTCARENOTE ---
Patient received OOB in chair watching television. Family just went home for evening. Patient assisted to bathroom with assist x2. Steady gait. Patient A+A+Ox3. No neurological deficits noted. No c/o headache, dizziness or lightheadedness.
Patient voided and had small BM. Patient to bed. No c/o SOB. No s/s of respiratory distress. Room air. O2 2L HS. SaO2 94%. Two Mediastinal chest tubes - Intact and patent - 30 ml red drainage - No air leak, tidaling or crepitus. Chest tube
dressing intact. Sinus Rhythm. Heart rate 70's. Blood pressure 112/53 (69). Metoprolol 12.5 mg PO Held per PA order. V-Wires insulated. No c/o chest pain, pressure or discomfort. Normoactive bowel sounds. No c/o nausea. No vomiting. Right
Bernice Montgomery. Assessment as documented.
[2023-07-15] VITALS (14 sets, daily range): BP systolic 92–127; BP diastolic 36–68; BMI 45.9
--- NOTE | 2023-07-15 | PTCARENOTE ---
Patient sleeping without difficulty. No further changes from previous assessment.
--- NOTE | 2023-07-15 04:02 | W.PN.CT ---
Today's Communication / Plan
-
Plan:
-No major issues overnight. Hemodynamically and neurologically intact
-Off all drips
-BP has been soft postop but improved, will resume low dose BB today
-Cont. current meds (ASA, Plavix, Amiodarone, Lopressor, Lipitor)
-Consider d/c of remaining chest tubes: 2meds 70/140. CXR this AM looks good
-Will discuss diuresis today as wt is noted to be up 8 lbs from preop
-Monitor VIRIDIANA dressing
-Cordis kinked and d/c'd this AM @ 0600
-Maintain temporary PW (will pull before d/c home)
-Encourage use of IS
-Wean off of O2 as tolerated
-OOB into chair/Ambulate
Assessment / Plan
-
Assessment:
-S/p Aortic valve replacement with a 25 mm bioprosthesis/Aortic root enlargement - Sixto Method/Rigid sternal fixation with 3 plates and wound VAC placement, by Dr. Silva, 07/13/23, pod#2
-Severe aortic valve stenosis secondary to type I bicuspid valve with left right fusion, symptomatic
-Morbidly obese with BMI of 42.8
-Hypertension
-Hyperlipidemia
-ANEL
-Prediabetes (A1C 5.8)
-Fibro cystic breast disorder
-Endometriosis
-Venous insufficiencies
-Asthma/reactive airway
-GERD
-Anxiety disorder
-S/p GRISELDA
-S/P Hx x 2
-S/P Cholecystectomy
-Acute postop blood loss on chronic Anemia (stable without transfusion)
-Acute postop atelectasis
-Acute postop hypovolemia with subsequent hypervolemia
Discussed patient care with: Cardiology, Nursing, Respiratory Therapy, Pharmacy and Care Team
Subjective
Procedure
Aortic valve replacement with a 25 mm bioprosthesis/Aortic root enlargement - Sixto Method/Rigid sternal fixation with 3 plates and wound VAC placement, by Dr. Silva, 07/13/23
-
Date of Service: July 15, 2023
Pt c/o pleuritic chest pain, otherwise feels well
Objective Data
-
PT 16.6 Sec (11.4-14.6) H 07/13/23 12:43
INR 1.36 07/13/23 12:43
APTT 35.0 Sec (23.4-35.0) 07/13/23 12:43
Vital Signs
Vital Signs
Temp Pulse Resp BP Pulse Ox
98.0 F 73 16 117/49 97
07/14/23 22:55 07/15/23 03:00 07/14/23 22:55 07/14/23 22:56 07/14/23 22:55
CT Intake/Output/Weight
07/14/23 07/14/23 07/15/23
06:59 18:59 06:59
Intake Total 1280.6 / 1795.0 45.2 / 615.2 570 / 615.2
Output Total 755 / 1600 335 / 575 240 / 575
Balance 525.6 / 195.0 -289.8 / 40.2 330 / 40.2
SaO2: 97 (2L)
Physical Exam
-
General: Awake and AOx3
Cardiovascular: Regular rate & rhythm, No Murmurs, No Rub and No Gallop
Respiratory: Decreased Breath Sounds (at bases, otherwise clear)
Sternum: Stable
Incision: Clean, Dry, Intact and Dressing Intact
Extremities: Other (+trace edema)
Data Reviewed
-
Lab Results: Results Reviewed
Medications: Active Meds Reviewed
Chest X-Ray: Report Reviewed and Image Reviewed
ECG: Report Reviewed and Image Reviewed
[2023-07-15] MEDS: TYLENOL 1000 MG PO ×3 (05:12→22:44)
[2023-07-15] MEDS: NSS 500 IV (05:13)
--- NOTE | 2023-07-15 06:00 | PTCARENOTE ---
Patient A+A+Ox3. No neurological deficits noted. Patient assisted to bathroom. Voided 250 ml. Brushed teeth. Right I.J. Cordis/Introducer discontinued - Occluded - PA at bedside. AM lab work collected and sent. Portable CXR completed. CHG
bath and linens changed. OOB to chair. Standing scale weight 113.7 kg. Assessment/Interventions as documented.
[2023-07-15 06:14] LABS: Hemoglobin 7.7 g/dL (12.0-16.0); Mean Corp Hgb Conc. 32.1 g/dL (33.0-37.0); Mean Corpuscular Hgb 29.5 pg (27.0-31.0); Mean Platelet Volume 9.7 fL (7.4-10.4); Platelet Count 160 10^3/uL (130-400); Red Blood Cell Count 2.61 10^6/uL (4.20-5.40); Red Cell Dist. Width 14.1 % (11.5-14.5); White Blood Cell Count 12.9 10^3/uL (4.8-10.8)
[2023-07-15 06:34] LABS: Blood Urea Nitrogen 23 mg/dl (7-17); Calcium 8.7 mg/dl (8.4-10.2); Carbon Dioxide 29 mmol/L (22-30); Chloride 102 mmol/L (98-107); Estimated Creatinine Clearance 86 ml/min; Glucose 140 mg/dl (70-99); Magnesium 2.3 mg/dl (1.6-2.3); Sodium 135 mmol/L (135-145); eGFR > 60.00
[2023-07-15 06:39] LABS: Potassium 4.4 mmol/L (3.5-5.1)
[2023-07-15] MEDS: ZOFRAN 4 MG IV (07:50)
--- NOTE | 2023-07-15 07:56 | W.PN.UPDATE ---
Update Note
Progress Note Update
Epicardial pacing wires removed without issues. Patient tolerated the procedure well. Bedrest x 1 hour. RN at the bedside for the procedure. Will remove mediastinal chest tubes later today.
--- NOTE | 2023-07-15 08:09 | PTCARENOTE ---
assumed care of pt from previous shift RN, sinus rhythm on tele w HR 70's, VSS, + peripheral pulses, +1 edema to bilateral lower extremities. Lungs diminished, pox 94% on RA. +bs, medicated for nausea, voids spontaneously. Sternal VIRIDIANA dressing
intact, CT sites without drainage. PIV flushes easily. Pacing wire pulled by CT PA. Plan of care reviewed w pt and questions encouraged.
[2023-07-15] MEDS: NEURONTIN 100 MG PO ×3 (08:55→22:44)
[2023-07-15] MEDS: LOW STRENGTH ASPIRIN 81 MG PO (08:55)
[2023-07-15] MEDS: LOPRESSOR 12.5 MG PO ×2 (08:55→20:17)
[2023-07-15] MEDS: KCL 20 MEQ PO (08:55)
[2023-07-15] MEDS: SENOKOT-S 1 TABLET PO (08:55)
[2023-07-15] MEDS: PROTONIX 40 MG PO (08:55)
[2023-07-15] MEDS: MAGNESIUM OXIDE 500 MG PO ×2 (08:55→20:18)
[2023-07-15] MEDS: ZOLOFT 50 MG PO (08:56)
[2023-07-15] MEDS: PACERONE 200 MG PO ×3 (08:56→22:44)
[2023-07-15] MEDS: VITAMIN C 1000 MG PO (08:56)
[2023-07-15] MEDS: LIDOCAINE 4% PATCH TOPICAL (08:56)
[2023-07-15] MEDS: BACTROBAN 2% OINTMENT 1 APPLIC NASAL ×2 (08:57→20:17)
[2023-07-15] MEDS: LASIX 40 MG IV (09:29)
--- NOTE | 2023-07-15 12:37 | PTCARENOTE ---
CTs removed as ordered without incident. Sinus rhythm maintained on tele, VSS. Pain is well controlled.
[2023-07-15] MEDS: FERRLECIT 110 MG IV (14:47)
--- NOTE | 2023-07-15 16:34 | PTCARENOTE ---
pt ambulated in hallway, tolerated well, VSS, sinus rhythm maintained on tele.
[2023-07-15 17:32] LABS: Glucose - Point of Care 132 mg/dl (70-99)
[2023-07-15] MEDS: SENOKOT-S PO (20:11)
--- NOTE | 2023-07-15 20:30 | PTCARENOTE ---
Patient received OOB in chair. Patient A+A+Ox3. No neurological deficits noted. Patient ambulated to bathroom to void. Minimal assistance. Steady gait. Brushed teeth. Patient to bed. Room air. SaO2 93%. 2L O2 HS. Chest tube dressing
intact. Sinus Rhythm. Heart rate 70's. No c/o chest pain, pressure or discomfort. Normoactive bowel sounds. No c/o nausea. No vomiting. Patient with no c/o back or flank pain. VIRIDIANA sternal dressing and VIRIDIANA drain intact. Patient's
at bedside. Assessment as documented.
[2023-07-16] VITALS (8 sets, daily range): BP systolic 97–137; BP diastolic 42–69; PULSE 74; O2SAT 94–96; BMI 45.8
--- NOTE | 2023-07-16 | PTCARENOTE ---
Patient sleeping without difficulty. No further changes from previous assessment.
--- NOTE | 2023-07-16 04:00 | PTCARENOTE ---
Patient A+A+Ox3. No neurological deficits noted. No c/o pain or discomfort. Ambulated to bathroom by self. Voided 300 ml. Standing scale weight 113.4 kg. Patient back to bed. AM lab work collected and sent. Assessment/Interventions as
documented.
--- NOTE | 2023-07-16 04:02 | W.PN.CT ---
Today's Communication / Plan
-
Plan:
-No major issues overnight. Hemodynamically and neurologically intact
-Off all drips
-BP has been soft postop but improved, tolerating resumption of low dose BB
-Cont. current meds (ASA, Plavix, Amiodarone, Lopressor, Lipitor)
-Check wt today, cont. diuresis if up
-Monitor h/h 7.3/22.1, likely hemodilutional. Denies lightheadedness/dizziness
-Monitor hyponatremia, 134. Fluid restriction
-Consider d/c of VIRIDIANA dressing
-Encourage use of IS
-OOB into chair/Ambulate
-Home later today vs tomorrow
Assessment / Plan
-
Assessment:
-S/p Aortic valve replacement with a 25 mm bioprosthesis/Aortic root enlargement - Sixto Method/Rigid sternal fixation with 3 plates and wound VAC placement, by Dr. Silva, 07/13/23, pod#3
-Severe aortic valve stenosis secondary to type I bicuspid valve with left right fusion, symptomatic
-Morbidly obese with BMI of 42.8
-Hypertension
-Hyperlipidemia
-ANEL
-Prediabetes (A1C 5.8)
-Fibro cystic breast disorder
-Endometriosis
-Venous insufficiencies
-Asthma/reactive airway
-GERD
-Anxiety disorder
-S/p GRISELDA
-S/P Hx x 2
-S/P Cholecystectomy
-Acute postop blood loss on chronic Anemia (stable without transfusion)
-Acute postop atelectasis
-Acute postop hypovolemia with subsequent hypervolemia
-Acute postop hyponatremia, 134
Discussed patient care with: Cardiology, Nursing, Respiratory Therapy, Pharmacy and Care Team
Subjective
Procedure
Aortic valve replacement with a 25 mm bioprosthesis/Aortic root enlargement - Pauloz Method/Rigid sternal fixation with 3 plates and wound VAC placement, by Dr. Silva, 07/13/23
-
Date of Service: July 16, 2023
Pt c/o mild incisional pain, otherwise feels well. Denies lightheadedness/dizziness
Objective Data
-
PT 16.6 Sec (11.4-14.6) H 07/13/23 12:43
INR 1.36 07/13/23 12:43
APTT 35.0 Sec (23.4-35.0) 07/13/23 12:43
Vital Signs
Vital Signs
Temp Pulse Resp BP Pulse Ox
98.4 F 71 16 137/63 97
07/16/23 03:35 07/16/23 03:36 07/16/23 03:35 07/16/23 03:36 07/16/23 03:35
CT Intake/Output/Weight
07/15/23 07/15/23 07/16/23
06:59 18:59 06:59
Intake Total 590 / 635.2 450 / 930 480 / 930
Output Total 520 / 855 1470 / 1720 250 / 1720
Balance 70 / -219.8 -1020 / -790 230 / -790
SaO2: 97 (RA)
Physical Exam
-
General: Awake, Oriented and AOx3
Cardiovascular: Regular rate & rhythm, No Murmurs, No Rub and No Gallop
Respiratory: Decreased Breath Sounds
Sternum: Stable
Incision: Clean, Dry, Intact and Dressing Intact
Extremities: Other (trace edema)
Data Reviewed
-
Lab Results: Results Reviewed
Medications: Active Meds Reviewed
Chest X-Ray: Report Reviewed and Image Reviewed
ECG: Report Reviewed and Image Reviewed
[2023-07-16 04:37] LABS: Hematocrit 22.1 % (37.0-47.0); Hemoglobin 7.3 g/dL (12.0-16.0); Mean Corpuscular Hgb 29.6 pg (27.0-31.0); Mean Corpuscular Volume 89.5 fL (81.0-99.0); Mean Platelet Volume 9.8 fL (7.4-10.4); Platelet Count 148 10^3/uL (130-400); Red Blood Cell Count 2.47 10^6/uL (4.20-5.40); Red Cell Dist. Width 13.9 % (11.5-14.5); White Blood Cell Count 10.3 10^3/uL (4.8-10.8)
[2023-07-16 04:48] LABS: Blood Urea Nitrogen 17 mg/dl (7-17); Calcium 8.5 mg/dl (8.4-10.2); Carbon Dioxide 30 mmol/L (22-30); Chloride 98 mmol/L (98-107); Estimated Creatinine Clearance 98 ml/min; Glucose 107 mg/dl (70-99); Magnesium 2.3 mg/dl (1.6-2.3); Potassium 4.4 mmol/L (3.5-5.1); Sodium 134 mmol/L (135-145); eGFR > 60.00
[2023-07-16] MEDS: TYLENOL PO (05:00)
--- NOTE | 2023-07-16 07:43 | W.DCSUMMARY ---
Discharge Summary
Discharge Data
Date of Admission: 07/13/23
Date of Discharge: 07/16/23
-
Pending Results: No
Hospital Course
Primary care physician: Modesta Coronado
Outpatient cottrell operator: Frederick Mckee
Inpatient consultants: [facility]
Procedures:
1. Aortic valve replacement and root enlargement with rigid sternal fixation
Primary Diagnosis:
1. Bicuspid aortic valve with severe aortic stenosis
Secondary Diagnoses:
1. Morbidly obese (BMI 42.8)
2. Hypertension
3. Hyperlipidemia
4. ANEL
5. Fibro cystic breast disorder
6. Endometriosis
7. Asthma
8. GERD
9. Acute surgical blood loss anemia (expected)
HPI: 63 year old female with bicuspid aortic valve was electively admitted for AVR/root enlargement with Dr. Silva on 07/13/23
Hospital course: Patient underwent aortic valve replacement #25 mm bioprosthesis with root enlargement (Nicks-Velazco Method). Rigid sternal fixation with 3 plates and wound VAC placement.
Intraoperative JORDAN: EF�70-75%. 80 mean gradient 11 mmHg. Trivial AI.
Patient received no intraoperative blood products and returned to CVICU on no vasoactive infusions. Patient was extubated at 1600 on the day of surgery. Patient was delined and had sternal subcutaneous MARTI drain and [place] removed on postoperative
day #1. Mediastinal chest tube and ventricular pacing wires were removed on postoperative day #2. Hemoglobin was 7.3 on postoperative day #3. Patient was asymptomatic and not transfused . Lenore dressing was removed and incision was clean, dry and
intact. Follow-up CBC was ordered for 07/18 and patient will be discharged on Lasix 20 mg daily. Patient did not have any postoperative episodes of atrial fibrillation. Routine preop urine culture was positive for E. coli which was resulted on
07/15. Patient denies urinary symptoms but was prescribed Macrobid twice daily for 5 days due to recent AVR.
Home medication changes:
Discharge Plan
-
Patient Disposition: Home (Routine Discharge)
Discharge Diagnosis/Procedures: severe
Condition: Good
Diet: Diabetic, Carb Controlled
Activity: No strenuous activity
Driving Restrictions: Not until seen by your Dr
Bathing Restrictions: OK to Shower
Blood Work: CBC on (07/18)
Other Services: Cardiac Rehab
Specialty Instructions: Weigh Daily- Call MD for wt gain/loss 3 lbs overnight/5 lbs in 1 week
Referrals:
CT Transitional Care Nurse [Outside] (The Cardiothoracic Transitional Care Nurse will call you to set up a visit in 1-2 days.)
[facility]. Cardiac Rehab [Outside] - 08/17/23 9:30 am
(Cardiac Rehab Orientation appointment is on Sunday08/17/23 at 930AM
The Cardiac Rehab gym is located on the first floor of the [facility].)
Modesta Coronado DO [Family Provider] -
Frederick Mckee MD [Active] - 08/22/23 2:00 pm
Braulio Silva MD [Active] - 08/16/23 2:45 pm
Prescriptions:
New
acetaminophen 325 mg Tablet
650 mg PO Q4HPRN PRN (Reason: mild pain,headache,temp >101F ) Qty: 0 0RF
aspirin [Children's Aspirin] 81 mg Tablet,Chewable
81 mg PO DAILY Qty: 0 0RF
cyclobenzaprine 10 mg Tablet
5 mg PO Q8HPRN PRN (Reason: muscle spasm) Qty: 20 0RF
atenolol 25 mg tablet
25 mg PO DAILY Qty: 30 1RF
nitrofurantoin monohyd/m-cryst 100 mg Capsule
100 mg PO BID Qty: 10 0RF
oxycodone 5 mg tablet
5 mg PO Q6HPRN PRN (Reason: pain) Qty: 24 0RF
tramadol 50 mg tablet
50 mg PO Q8H PRN (Reason: severe pain) Qty: 20 0RF
Continued
sumatriptan succinate 50 mg Tablet
50 mg PO Q2H PRN (Reason: migraine)
Rx Instructions:
50 mg every 2-4 hours as needed
albuterol sulfate 90 mcg/actuation Hfa Aerosol Inhaler
2 puff INHALATION Q6H PRN (Reason: wheezing)
sertraline 50 mg Tablet
50 mg PO DAILY
furosemide [Lasix] 20 mg tablet
20 mg PO DAILY Qty: 90 5RF
Discontinued
propranolol 20 mg Tablet
20 mg PO BID
Discharge Orders:
Discharge Patient (As Directed); Ordered 07/16/23
Ordered By: Marcia Rosales
Care Plan Goals
Care Plan Goals:
Problem: Readiness for enhanced knowledge related to diagnosis and treatment plan
Goal: Understand your diagnosis and treatment plan needs, including medications if applicable.
Instructions: Know your diagnosis, underlying causes and treatment plan options, including medications if applicable. Consult with your health care team to learn about your diagnosis and treatment plan, including medications if applicable.
Discharge Date and Time
Discharge Date/Time: 07/16/23 13:43
Print Language: UPPER SORBIAN
--- NOTE | 2023-07-16 07:59 | PTCARENOTE ---
Patient received from nightshift nurse. Patient alert and oriented x4, pleasant. Patient c/o headache, asked for extra strength Tylenol - administered the dose early, since her 0600 dose was not given. NSR. HR 80s. Distant heart tones. BP 105/48.
Palpable pulses, weak dorsalis pedal pulses. +1 L ankle edema (patient states that it is usually more swollen than the R ankle, baseline). Trace R ankle edema. +1 R hand edema (new and CT COLLECTION OFFICER notified). PIV maintained. RA. Oxygen saturation 92%. Upon
auscultation, lung sounds diminished at the bases. IS 750 - encouraged to utilize the IS more. Abdomen round, obese. +BS. Per patient, had a BM Sunday and passing gas. Voids spontaneously in the BR. Ambulates in room independently ad shea. Sternal
VIRIDIANA dressing is clean, dry, intact. CT dressing is clean, dry, intact. Plan to diurese this morning and possibly discharge later this afternoon.
[2023-07-16] MEDS: LOW STRENGTH ASPIRIN 81 MG PO (08:31)
[2023-07-16] MEDS: SENOKOT-S 1 TABLET PO (08:31)
[2023-07-16] MEDS: TYLENOL 1000 MG PO (08:31)
[2023-07-16] MEDS: BACTROBAN 2% OINTMENT 1 APPLIC NASAL (08:31)
[2023-07-16] MEDS: LIDOCAINE 4% PATCH 1 PATCH TOPICAL (08:31)
[2023-07-16] MEDS: PACERONE 200 MG PO (08:32)
[2023-07-16] MEDS: NEURONTIN 100 MG PO (08:32)
[2023-07-16] MEDS: LOPRESSOR 12.5 MG PO (08:32)
[2023-07-16] MEDS: PROTONIX 40 MG PO (08:32)
[2023-07-16] MEDS: VITAMIN C 1000 MG PO (08:32)
[2023-07-16] MEDS: LASIX 40 MG IV (08:32)
[2023-07-16] MEDS: ZOLOFT 50 MG PO (08:32)
[2023-07-16] MEDS: MAGNESIUM OXIDE 500 MG PO (08:32)
--- NOTE | 2023-07-16 09:07 | CM ---
dc plan remains home when medically stable.
[2023-07-16] MEDS: NSS IV (09:23)
--- NOTE | 2023-07-16 09:29 | PN.CDI ---
CDI
- -
CDI:
Physician Documentation Request
Admit Date: 07/13/23 04:[address] Surgery,
Please review the following and provide your response in the progress notes.
Clinical Indicators:
The diagnosis of E coli was included in the signed urine culture
- 07/12 Urine culture positive E coli - resulted 07/14
- No antibiotics ordered
Please indicate in your progress notes if you are in agreement that the above diagnosis is valid for this patient:
____ - UTI is a valid diagnosis (Please include it in your progress notes)
____ - UTI is not a valid diagnosis for this patient
____ - UTI is not yet confirmed but remains a suspected condition
____ - Other
Use of terms such as suspected, likely, concern for, or probable are acceptable for a diagnosis that is being evaluated, monitored or treated as if it exists and can be coded in the inpatient setting, when documented at the time of discharge.
Thank you,
Almaz Ramírez RN
CDI Specialist
Please use your independent medical judgment in providing your response.
--- NOTE | 2023-07-16 10:41 | W.PN.CARDCBS ---
Today's Communication / Plan
-
Plan:
-Status post bioprosthetic AVR with rigid sternal fixation 07/13/2023
-No significant issues overnight. Continues to remain hemodynamically and neurologically intact, off all drips.
-On low-dose beta-blanquita with borderline blood pressures. Continue to monitor.
-Cont. current meds (ASA, Plavix, Amiodarone, Lopressor, Lipitor)
-Given no Rales on exam, would continue IV diuresis while patient is here and likely plan on p.o. diuretics upon discharge. Strongly encourage incentive spirometry.
-Monitor h/h 7.3.1. Defer transfusion threshold to surgery team.
-Continue postoperative care
-Outpatient follow-up with ATC
-Discussed with nursing
-Home later today vs tomorrow
Impression / Plan
-
Primary Professor Of Kinesiology: Dr. Mckee of [facility]
Assessment:
Severe symptomatic with bicuspid morphology s/p bioprosthetic AVR, aortic root enlargement, rigid sternal fixation 07/13/23
Morbid obesity
Venous insufficiency
History of migraines
Asthma/reactive airway disease
Anemia
Endometriosis status post hysterectomy
GERD
Anxiety/depression
ECHO 06/04/2023 at [facility]: EF 55 to 60%, mild LVH, severe , trace AI
Plan:
-Status post bioprosthetic AVR with rigid sternal fixation 07/13/2023
-No significant issues overnight. Continues to remain hemodynamically and neurologically intact, off all drips.
-On low-dose beta-blanquita with borderline blood pressures. Continue to monitor.
-Cont. current meds (ASA, Plavix, Amiodarone, Lopressor, Lipitor)
-Given no Rales on exam, would continue IV diuresis while patient is here and likely plan on p.o. diuretics upon discharge. Strongly encourage incentive spirometry.
-Monitor h/h 7.3.1. Defer transfusion threshold to surgery team.
-Continue postoperative care
-Outpatient follow-up with ATC
-Discussed with nursing
-Home later today vs tomorrow
Progress Note - Professor Of Kinesiology
Subjective
Date of Service: July 16, 2023
No major complaints.
Objective
Labs:
07/16/23 04:06
07/16/23 04:06
Labs
Hgb 7.3 g/dL (12.0-16.0) L 07/16/23 04:06
Hct 22.1 % (37.0-47.0) L 07/16/23 04:06
Plt Count 148 10^3/uL (130-400) 07/16/23 04:06
PT 16.6 Sec (11.4-14.6) H 07/13/23 12:43
INR 1.36 07/13/23 12:43
APTT 35.0 Sec (23.4-35.0) 07/13/23 12:43
Sodium 134 mmol/L (135-145) L 07/16/23 04:06
Potassium 4.4 mmol/L (3.5-5.1) 07/16/23 04:06
BUN 17 mg/dl (7-17) 07/16/23 04:06
Creatinine 0.7 mg/dL (0.6-1.0) 07/16/23 04:06
Glucose 107 mg/dl (70-99) H 07/16/23 04:06
Vital Signs and I&O:
Vital Signs
Temp Pulse Resp BP Pulse Ox
97.9 F 84 18 105/40 92
07/16/23 07:57 07/16/23 09:00 07/16/23 07:57 07/16/23 08:32 07/16/23 08:00
Vital Signs
Temp Pulse Resp BP Pulse Ox
97.9 F 84 18 105/40 92
07/16/23 07:57 07/16/23 09:00 07/16/23 07:57 07/16/23 08:32 07/16/23 08:00
Intake & Output
07/14/23 07/15/23 07/16/23 07/17/23
06:59 06:59 06:59 06:59
Intake Total 1782.4 / 1795.0 635.2 / 635.2 930 / 930 480 / 480
Output Total 1540 / 1600 855 / 855 2019 / 2019 500 / 500
Balance 242.4 / 195.0 -219.8 / -219.8 -1090 / -1090 -20 / -20
Physical Exam
Physical Exam
NAD, OOB in chair
Sternotomy scar is dressed, c/d/i
RR, Normal S1 and S2.
Abd obese, soft, NT, ND +BS
warm ext
Basilar Rales R>>L
--- NOTE | 2023-07-16 11:50 | PTCARENOTE ---
Vital signs stable. NSR. HR 70s. BP 101/49. Denies pain/discomfort. RA. Oxygen saturation 93%. Patient diuresing very well - ambulating in room to the BR independently ad shea. Performed stairs with CR earlier. Plan to shower then discharge home
early this afternoon.
[2023-07-16] MEDS: MACROBID 100 MG PO (11:59)
--- NOTE | 2023-07-16 13:26 | PTCARENOTE ---
Discharge order placed. Vital signs obtained. wood gang sawyer discontinued so patient could shower. CT STUDENT DRIVING INSTRUCTOR removed VIRIDIANA drain with RN assisting. Patient showered with assistance from the . RN went over discharge instructions with patient and
her . Medication list, last dose of medications, and electronic prescription list (sent to the patient's pharmacy) were given to the patient. RN answered patient's questions and her 's questions. PIV discontinued. Patient picked up by
volunteer via wheelchair to go to the [facility], where her is parked.
== END 2023-07-16 13:43 | disposition home or self-care (01) | DRG 220 ==
LOC: CVICU 04:45
PROVIDERS: Anesthesiology; Clinical Nurse Specialist Acute Care; ADMITTING PHYSICIAN Thoracic Surgery (Cardiothoracic Vascular Surgery); CONSULT PHYSICIAN Internal Medicine Critical Care Medicine; FAMILY PHYSICIAN Family Medicine; OTHER PHYSICIAN Internal Medicine Cardiovascular Disease
PROC: 02RF08Z Replacement of Aortic Valve with Zooplastic Tissue, Open Approach (ICD-10-PCS; 2023-07-13)
PROC: 02UX08Z Supplement Thoracic Aorta, Ascending/Arch with Zooplastic Tissue, Open Approach (ICD-10-PCS; 2023-07-13)
PROC: B24BZZ4 Ultrasonography of Heart with Aorta, Transesophageal (ICD-10-PCS; 2023-07-13)
PROC: 5A1221Z Performance of Cardiac Output, Continuous (ICD-10-PCS; 2023-07-13)
DX: Q23.1 Congenital insufficiency of aortic valve (principal); D62 Acute posthemorrhagic anemia; Z68.42 Body mass index [BMI] 45.0-49.9, adult; J98.11 Atelectasis; E87.1 Hypo-osmolality and hyponatremia; E66.01 Morbid (severe) obesity due to excess calories; I10 Essential (primary) hypertension; E78.5 Hyperlipidemia, unspecified; G47.33 Obstructive sleep apnea (adult) (pediatric); J45.909 Unspecified asthma, uncomplicated; K21.9 Gastro-esophageal reflux disease without esophagitis; I87.2 Venous insufficiency (chronic) (peripheral); F32.A Depression, unspecified; F41.9 Anxiety disorder, unspecified; R73.03 Prediabetes; G43.909 Migraine, unspecified, not intractable, without status migrainosus; E86.1 Hypovolemia; E87.70 Fluid overload, unspecified; Z79.899 Other long term (current) drug therapy
CPT/HCPCS: 88304; 88311; 36415; 71045; 80048; 80053; 81003; 81015; 82248; 82330; 82565; 82805; 82810; 82947; 82962; 83036; 83735; 84132; 84302; 84520; 85014; 85018; 85025; 85027; 85049; 85610; 85730; 86850; 86900; 86901; 86920; 87070; 87077; 87086; 87186; 93005; 93312; 93320; 93325; 93880; 94002; C1713; C1768; J2916; P9045

== ENCOUNTER 2023-08-31 11:38 | Outpatient (RCR) | payer OTHER, SELFPAY | END 2023-08-31 23:59 | disposition home or self-care (01) | LOC: CRHB 11:38 | PROVIDERS: ATTENDING PHYSICIAN Internal Medicine Cardiovascular Disease | DX: Z95.4 Presence of other heart-valve replacement (principal) | CPT/HCPCS: G0422; G0423 ==

== ENCOUNTER 2023-09-26 11:16 | Outpatient (RCR) | payer OTHER, SELFPAY | END 2023-09-26 23:59 | disposition home or self-care (01) | LOC: CRHB 11:16 | PROVIDERS: ATTENDING PHYSICIAN Internal Medicine Cardiovascular Disease | DX: Z95.4 Presence of other heart-valve replacement (principal) | CPT/HCPCS: G0422; G0423 ==

== ENCOUNTER 2023-10-29 17:48 | Outpatient (RCR) | payer OTHER, SELFPAY | END 2023-10-29 23:59 | disposition home or self-care (01) | LOC: CRHB 17:48 | PROVIDERS: ATTENDING PHYSICIAN Internal Medicine Cardiovascular Disease | DX: Z95.3 Presence of xenogenic heart valve (principal) | CPT/HCPCS: G0422; G0423 ==

== ENCOUNTER 2023-11-05 17:48 | Outpatient (RCR) | payer OTHER, SELFPAY | END 2023-11-05 23:59 | disposition home or self-care (01) | LOC: CRHB 17:48 | PROVIDERS: ATTENDING PHYSICIAN Internal Medicine Cardiovascular Disease | DX: Z95.4 Presence of other heart-valve replacement (principal) | CPT/HCPCS: G0422; G0423 ==